=== PATIENT | male | born 1990 ===

== ENCOUNTER 2020-03-02 13:16 | Emergency (ER) | payer SELFPAY ==
[2020-03-02 13:51] VITALS: BP 172/93
--- NOTE | 2020-03-02 15:31 | Emergency Department Report ---
Minor Respiratory - HPI Chief Complaint: Upper Respiratory Infection Stated Complaint: CHEST CONGESTION/AMRIK/COVID19 Time Seen by Provider: 03/02/20 15:26 Duration: 2 Days Minor Respiratory: Yes Able to Tolerate Fluids, Yes Cough, Yes Shortness of Breath, No Rhinorrhea, No Sore Throat, No Ear Pain, No Sick Contacts, No Hemoptysis, No Chest Pain, No Fever Other History: 29-year-old morbid obese male that is Covid positive on 02/26/20. Resents to the emergency room for shortness of breath and cough. Patient has a past medical history of asthma and obesity. Patient states he has been using hi s inhaler. Denies any fever admits to chills. Denies any nausea no vomiting no diarrhea or abdominal pain or headache. Patient denies any loss of taste or smell. ED Review of Systems ROS: Stated complaint: CHEST CONGESTION/AMRIK/COVID19 Other details as noted in HPI Comment: All other systems reviewed and negative ED Past Medical Hx - Past Medical History Previous Medical History?: Yes Hx Asthma: Yes Additional medical history: COVID Positive - Surgical History Past Surgical History?: No - Social History Smoking Status: Never Smoker Substance Use Type: None Minor Respiratory Exam - Exam General: Vital signs noted. No distress. Alert and acting appropriately. HEENT: Yes Moist Mucous Membranes, No Pharyngeal Erythema, No Pharyngeal Exudates, No Rhinorrhea, No Conjuctival Injection, No Frontal Tenderness, No Maxillary Tenderness Neck: Yes Supple, No Adenopathy Lungs: Yes Good Air Exchange, No Wheezes, No Ronchi, No Stridor, No Cough, No Labored Respirations, No Retractions, No Use of Accessory Muscles, No Other Abnormal Lung Sounds Heart: No Regular (Tachycardic) Abdomen: Yes Normal Bowel Sounds, No Tenderness, No Peritoneal Signs Skin: No Rash, No Edema Neurologic: Alert and oriented, no deficits. Musculoskeletal: Unremarkable. ED Course Vital Signs 03/02/20 13:47 Temperature 98.9 F Pulse Rate 106 H Respiratory 20 Rate Blood Pressure 172/93 [Right] O2 Sat by Pulse 96 Oximetry ED Medical Decision Making - Radiology Data Radiology results: report reviewed Referring Physician:LEIDY GABRIELPatient Name:RICHARD CRANDALLPatient ID:[id number] of :[id number]:MaleAccession:[id number] Date:[id number] Status:Finalized Findings [facility] [address] [place] [address] XRay Report Signed Patient: RICHARD CRANDALL MR#: [id number] : 1990 Acct:[id number] Age/Sex: 29 / M ADM Date: 03/02/20 Loc: ED Attending Dr: Ordering Physician: NIRANJAN GAMBOA Date of Service: 03/02/20 Procedure(s): XR chest routine 2V Accession Number(s): [id number] cc: NIRANJAN GAMBOA Fluoro Time In Minutes: CHEST 2 VIEWS INDICATION: sob +covid. COMPARISON: None FINDINGS: Support devices: None. Heart: Within normal limits. Lungs/pleura: No acute air space or interstitial disease. No pneumothorax. Additional findings: None. IMPRESSION: No acute findings. Signer Name: Woodrow Rodriguez Jr, MD Signed: 03/02/2020 3:49 PM Workstation Name: [id number] Transcribed By: TTR Dictated By: WOODORW RODRIGUEZ JR, MD Electronically Authenticated By: WOODROW RODRIGUEZ JR, MD Signed Date/Time: 03/02/201548 DD/ 48 TD/TT: - Medical Decision Making 29-year-old morbid obese male that is Covid positive on 02/26/20. Resents to the emergency room for shortness of breath and cough. Patient has a past medical history of asthma and obesity. Patient states he has been using his inhaler. Denies any fever admits to chills. Denies any nausea no vomiting no diarrhea or abdominal pain or headache. Patient denies any loss of taste or smell. Chest x-ray is ordered. Chest x-ray is negative for any acute findings. Recommend to continue quarantine increase your fluid intake try taking zinc 50 mg daily probiotics daily vitamin C 500 to 1000 mg daily and vitamin D 5058-1566 daily. Critical care attestation.: If time is entered above; I have spent that time in minutes in the direct care of this critically ill patient, excluding procedure time. ED Disposition Clinical Impression: COVID-19 Disposition: DC-01 TO HOME OR SELFCARE Is pt being admited?: No Does the pt Need Aspirin: No Condition: Stable Instructions: COVID-19, COVID-19 Frequently Asked Questions Additional Instructions: Chest x-ray is negative for any acute findings. Recommend to continue quarantine increase your fluid intake try taking zinc 50 mg daily probiotics daily vitamin C 500 to 1000 mg daily and vitamin D 8099-6006 daily. Your symptoms appear most consistent with a nonspecific viral syndrome. However, given this current pandemic, COVID-19 is in the differential of possibilities. In the meantime, isolate/quarantine yourself and stay away from anyone who is elderly, immunocompromised or chronically ill. You can use ibuprofen every 6-8 hours and Tylenol every 4-8 hours, using the dosing on the back of the bottle, as needed for any fever or body aches. Return to the emergency department with any worsening of your symptoms, development of chest pain or shortness of breath, or with any acute distress. Referrals: [facility] [Provider Group] - 3-5 Days Forms: Work/School Release Form(ED)
--- NOTE | 2020-03-02 15:53 | XRay Report ---
CHEST 2 VIEWS INDICATION: sob +covid. COMPARISON: None FINDINGS: Support devices: None. Heart: Within normal limits. Lungs/pleura: No acute air space or interstitial disease. No pneumothorax. Additional findings: None. IMPRESSION: No acute findings. Signer Name: Woodrow Rodriguez Jr, MD Signed: 03/02/2020 3:49 PM Workstation Name: [id number]
== END 2020-03-02 17:03 | disposition home or self-care (01) ==
LOC: ED 13:16
DX: U07.1 COVID-19 (principal); J45.909 Unspecified asthma, uncomplicated; Z79.2 Long term (current) use of antibiotics
CPT/HCPCS: 71046; 99283